=== PATIENT | male | born 1990 | race American Indian/Alaskan Native ===

== ENCOUNTER 2018-03-28 14:25 | Emergency (ER) | payer OTHER ==
[~2018-03-28] VITALS: Ht 167.6 cm; Wt 70.0 kg
[2018-03-28 14:43] VITALS: BP 108/60
[2018-03-28] MEDS ORDERED: DOXYCYCLINE 100MG CAPSULE PO STA (15:18)
[2018-03-28] MEDS ORDERED: ondansetron 4mg rapidly disintigrating tab PO ONE (15:20)
[2018-03-28] MEDS ORDERED: CefTRIAXone 1000mg IM Kit (w/lidocaine diluent) IM ONE (15:20)
[2018-03-28] MEDS ORDERED: normal saline 1000ML IV soln IV ONE (15:25)
[2018-03-28] MEDS ORDERED: iohexol 300mg/ml 100ml inj. ONE (16:02)
[2018-03-28 16:50] LABS: BASOPHILS % (AUTO) 0.3 % (0-1); EOSINOPHILS # (AUTO) 0.2 X10'3 (0-0.9); EOSINOPHILS % (AUTO) 3.1 % (0-6); HEMATOCRIT 37.8 % (42.0-52.0); HEMOGLOBIN 13.1 g/dl (14.0-17.9); LYMPHOCYTES # (AUTO) 1.3 X10'3 (1.1-4.8); LYMPHOCYTES % (AUTO) 16.6 % (21-51); MEAN CORPUSCULAR HEMOGLOBIN 30.6 PG (27.0-31.0); MEAN CORPUSCULAR HGB CONC 34.6 % (33.0-36.5); MEAN CORPUSCULAR VOLUME 88.5 FL (78-98); MEAN PLATELET VOLUME 8.1 FL (7.4-10.4); MONOCYTES # (AUTO) 0.7 X10'3 (0-0.9); MONOCYTES % (AUTO) 8.8 % (2-12); NEUTROPHILS # (AUTO) 5.7 X10'3 (1.8-7.7); NEUTROPHILS % (AUTO) 71.2 % (42-75); PLATELET COUNT 183 X10'3 (140-440); RED BLOOD COUNT 4.28 X10'6 (4.70-6.10); RED CELL DISTRIBUTION WIDTH 12.9 % (11.5-14.5)
[2018-03-28 17:00] LABS: PARTIAL THROMBOPLASTIN TIME 26 SECONDS (22-32)
[2018-03-28] MEDS ORDERED: MELO-100 PO (17:03)
[2018-03-28] MEDS ORDERED: DOXY100C43 PO (17:03)
[2018-03-28] MEDS ORDERED: ketorolac trometh. 30mg/ml inj. IV ONE (17:20)
[2018-03-28] MEDS ORDERED: HYDROcodone/acetaminophen 5mg/325mg tablet PO ONE (17:20)
[2018-03-28] MEDS ORDERED: dexamethasone 4mg/ml inj IV ONE (17:20)
[2018-03-28 17:29] LABS: ALANINE AMINOTRANSFERASE 23 U/L (12-78); ALBUMIN 3.7 G/DL (3.4-5.0); ALBUMIN/GLOBULIN RATIO 1.2 (1.1-1.5); ALKALINE PHOSPHATASE 75 IU/L (46-116); ANION GAP 6 (8-16); ASPARTATE AMINO TRANSFERASE 21 U/L (10-37); BILIRUBIN,TOTAL 0.3 MG/DL (0.1-1.0); BLOOD UREA NITROGEN 13 MG/DL (7-18); BUN/CREATININE RATIO 15.1 (5.4-32.0); CALCIUM 8.1 MG/DL (8.5-10.1); CHLORIDE 101 MMOL/L (99-107); CREATININE 0.86 MG/DL (0.60-1.10); GLUCOSE 81 MG/DL (70-104); MAGNESIUM 1.7 MG/DL (1.5-2.4); POTASSIUM 3.8 MMOL/L (3.5-5.1); SODIUM 135 MMOL/L (135-145); TOTAL CARBON DIOXIDE 27.7 MMOL/L (24-32); TOTAL PROTEIN 6.7 G/DL (6.4-8.2); eGFR > 90 ML/MIN
== END 2018-03-28 18:14 | disposition home or self-care (01) ==
LOC: ER 14:26
DX: S02.5XXA Fracture of tooth (traumatic), initial encounter for closed fracture (principal); K08.89 Other specified disorders of teeth and supporting structures; Z88.6 Allergy status to analgesic agent; Z88.5 Allergy status to narcotic agent; Z79.899 Other long term (current) drug therapy; X58.XXXA Exposure to other specified factors, initial encounter; Y93.89 Activity, other specified; Y92.89 Other specified places as the place of occurrence of the external cause; Y99.8 Other external cause status
CPT/HCPCS: 36415; 70487; 80053; 83605; 83735; 84145; 85025; 85610; 85730; 87040; 96372; 96374; 96375; 99285; J0696; J1100; J1885; J7030; Q9967